=== PATIENT | female | born 1975 | race Native Hawaiian/Other Pacific Islander ===

== ENCOUNTER 2020-08-06 09:25 | Outpatient (CLI) | payer BC, OTHER | END 2020-08-06 21:54 | disposition home or self-care (01) | LOC: LAB 09:25 | PROVIDERS: ATTEND Nurse Practitioner Family | DX: Z20.828 Contact with and (suspected) exposure to other viral communicable diseases (principal) | CPT/HCPCS: 87635; G2023; U0003 ==